=== PATIENT | female | born 1995 | race Caucasian/White ===

== ENCOUNTER 2019-05-30 11:36 | Emergency (ER) | payer OTHER ==
[~2019-05-30] VITALS: Ht 172.7 cm; Wt 81.7 kg
[2019-05-30] MEDS ORDERED: NAPROSYN500 MG PO (15:36)
[2019-05-30] MEDS ORDERED: PROMETHAZINE HC25 M1 PO (15:36)
== END 2019-05-30 15:59 | disposition home or self-care (01) ==
LOC: ED 11:36
DX: S06.0X0A Concussion without loss of consciousness, initial encounter (principal); S16.1XXA Strain of muscle, fascia and tendon at neck level, initial encounter; W00.0XXA Fall on same level due to ice and snow, initial encounter; Z88.5 Allergy status to narcotic agent; Z88.8 Allergy status to other drugs, medicaments and biological substances; Z91.040 Latex allergy status; Z91.041 Radiographic dye allergy status
CPT/HCPCS: 70450; 72125; 84703; 99284-25